=== PATIENT | male | born 1965 | race Two or more races ===

== ENCOUNTER 2017-07-05 09:22 | Inpatient (IN) | payer OTHER ==
[2017-07-05 09:42] VITALS: BMI 26.6
--- NOTE | 2017-07-05 10:38 | HP ---
CIWA Score - CIWA Score Nausea/Vomitin-Mild Nausea/No Vomiting Muscle Tremors: 4-Moderate,w/Arms Extend Anxiety: 4-Mod. Anxious/Guarded Agitation: 1-Slight > Activity Paroxysmal Sweats: 1-Minimal Palms Moist Orientation: 1-Uncertain about Date Tacttile Disturbances: 1-Very Mild Itch/Numbness Auditory Disturbances: 1-Very Mild Visual Disturbances: 1-Very Mild Sensitivity Headache: 2-Mild CIWA-Ar Total Score: 17 Admission ROS BHS - HPI Chief Complaint: I want a chance, I want to get sober Allergies/Adverse Reactions: Allergies Allergy/AdvReac Type Severity Reaction Status Date / Time No Known Allergies Allergy Verified 07/05/17 10:11 History of Present Illness: 51 yo gentleman here for detox from alcohol - no seizure, last time in detox 2013 but relapsed a month ago. Fell and hurt knee but was evaluated at [facility] last night - xray normal - treated and sent for detox. using cane Exam Limitations: Clinical Condition - Ebola screening Have you traveled outside of the country in the last 21 days: No Have you had contact with anyone from an Ebola affected area: No Have you been sick,other than usual withdrawal symptoms: No Do you have a fever: No - Review of Systems Constitutional: Malaise, Night Sweats EENT: reports: Blurred Vision Respiratory: reports: No Symptoms reported Cardiac: reports: No Symptoms Reported GI: reports: Nausea, Abdominal cramping : reports: Frequency Musculoskeletal: reports: No Symptoms Reported Integumentary: reports: Dryness Neuro: reports: Headache, Tremors Endocrine: reports: No Symptoms Reported Hematology: reports: No Symptoms Reported Psychiatric: reports: Judgement Intact, Mood/Affect Appropiate, Orientated x3, Anxious Other Systems: Reviewed and Negative Patient History - Patient Medical History Hx Anemia: No Hx Asthma: No Hx Chronic Obstructive Pulmonary Disease (COPD): No Hx Cancer: No Hx Cardiac Disorders: No Hx Congestive Heart Failure: No Hx Hypertension: No Hx Hypercholesterolemia: No Hx Pacemaker: No HX Cerebrovascular Accident: No Hx Seizures: No Hx Dementia: No Hx Diabetes: Yes (oral meds - non adherent) Hx Gastrointestinal Disorders: No Hx Liver Disease: No Hx Genitourinary Disorders: No Hx Sexually Transmitted Disorders: Yes (Syphillis 2016 - treated with PCN) Hx Renal Disease (ESRD): No Hx Thyroid Disease: No Hx Human Immunodeficiency Virus (HIV): No Hx Hepatitis C: No Hx Depression: Yes (on meds) Hx Suicide Attempt: No (does have thoughts) Hx Bipolar Disorder: Yes (hospitalized three years ago [place]) Hx Schizophrenia: Yes (hears voices - not now) - Patient Surgical History Past Surgical History: Yes Hx Neurologic Surgery: No Hx Cataract Extraction: No Hx Cardiac Surgery: No Hx Lung Surgery: No Hx Breast Surgery: No Hx Breast Biopsy: No Hx Abdominal Surgery: No Hx Appendectomy: No Hx Cholecystectomy: Yes (2002) Hx Genitourinary Surgery: No Hx Section: No Hx Orthopedic Surgery: No Anesthesia Reaction: No - PPD History Previous Implant?: Yes Documented Results: Negative w/proof Implanted On Prior [facility] Admission?: Yes Date: 12/30/13 Results: 0 mm PPD to be Administered?: Yes - Reproductive History Patient is a Female of Child Bearing Age (11 -55 yrs old): No (male) - Smoking Cessation Smoking history: Current every day smoker Have you smoked in the past 12 months: Yes Aproximately how many cigarettes per day: 20 Hx Chewing Tobacco Use: No Initiated information on smoking cessation: Yes 'Breaking Loose' booklet given: 07/05/17 (give on floor) - Substance & Tx. History Hx Alcohol Use: Yes Hx Substance Use: No Substance Use Type: Alcohol Hx Substance Use Treatment: Yes (detox, rehab) - Substances Abused Alcohol Route: Oral Frequency: Daily Amount used: vodka 4 pints Age of first use: 12 Date of Last Use: 07/04/17 Family Disease History - Family Disease History Family History: Unable to Obtain (adopted) Family Disease History: Other: Mother (adopted mother , MVA) Admission Physical Exam [facility] - Vital Signs Vital Signs: Vital Signs - 24 hr 07/05/17 09:40 Temperature 97.2 F L Pulse Rate 106 H Respiratory 20 Rate Blood Pressure 123/81 - Physical General Appearance: Yes: Nourished, Appropriately Dressed, Mild Distress, Anxious HEENTM: Yes: Hearing grossly Normal, Normal ENT Inspection, Normocephalic, Normal Voice Respiratory: Yes: Normal Breath Sounds, No Respiratory Distress Neck: Yes: No masses,lesions,Nodules Breast: Yes: Breast Exam Deferred Cardiology: Yes: Regular Rhythm, Regular Rate Abdominal: Yes: Soft Genitourinary: Yes: Within Normal Limits Back: Yes: Normal Inspection Musculoskeletal: Yes: full range of Motion, Joint swelling, Other (left knee with mild swelling) Extremities: Yes: Normal Inspection, Pedal Edema, Swelling Neurological: Yes: Fully Oriented, Alert, Normal Mood/Affect, Normal Response Integumentary: Yes: Normal Color, Warm Lymphatic: Yes: Within Normal Limits - Addiitonal Findings: IBA=[id number] - Diagnostic (1) Alcohol dependence Current Visit: Yes Status: Chronic Qualifiers: Substance use status: uncomplicated Qualified Code(s): F10.20 - Alcohol dependence, uncomplicated (2) Hx of syphilis Current Visit: Yes Status: Chronic Comment: treated (3) Nicotine dependence Current Visit: Yes Status: Chronic (4) Diabetes mellitus treated with oral medication Current Visit: Yes Status: Chronic Comment: non compliant with meds x 1 month (5) Pedal edema Current Visit: Yes Status: Chronic Comment: states gets edema when he drinks alot (6) Knee injury Current Visit: Yes Status: Acute Qualifiers: Encounter type: subsequent encounter Laterality: left Qualified Code(s): S89.92XD - Unspecified injury of left lower leg, subsequent encounter Comment: treated at [place] ED 07/04/17 - told XRay negative for fracture Cleared for Admission [facility] - Detox or Rehab [facility] Level of Care: Medically Managed Detox Regimen/Protocol: Librium [facility] Breath Alcohol Content Breath Alcohol Content: 0.008 Urine Drug Screen - Results Drug Screen Negative: Yes
[2017-07-05] MEDS ORDERED: chlordiazePOXIDE HCL 25 MG CAPSULE PO PRN (10:44)
[2017-07-05] MEDS ORDERED: P-EPHED 60MG/TRIPROLIDI 2.5MG TABLET PO PRN (10:44)
[2017-07-05] MEDS ORDERED: LOPERAMIDE HCL 2 MG CAPSULE PO PRN (10:44)
[2017-07-05] MEDS ORDERED: MENTHOL/PHENOL 1 EACH UD MM PRN (10:44)
[2017-07-05] MEDS ORDERED: hydrOXYzine PAMOATE 50 MG CAPSULE (FP) PO PRN (10:44)
[2017-07-05] MEDS ORDERED: IBUPROFEN 400 MG TABLET (FP) PO PRN (10:44)
[2017-07-05] MEDS ORDERED: MAG HYDROX/AL HYDROX/SIMETH 30 ML UNIT-DOSE CUP PO PRN (10:44)
[2017-07-05] MEDS ORDERED: MAGNESIUM CITRATE 300 ML BOTTLE PO PRN (10:44)
[2017-07-05] MEDS ORDERED: diphenhydrAMINE HCL 50 MG CAPSULE PO PRN (10:44)
[2017-07-05] MEDS ORDERED: guaiFENesin/D-METHORPHAN HB 10 ML UNIT-DOSE CUPS PO PRN (10:44)
[2017-07-05] MEDS ORDERED: MAGNESIUM HYDROX 2400MG/30ML ORAL SUSPENSION 30 ML CUP PO PRN (10:44)
[2017-07-05] MEDS ORDERED: FUROSEMIDE 20 MG TABLET (FP) PO ONE (11:30)
[2017-07-05] MEDS ORDERED: chlordiazePOXIDE HCL 25 MG CAPSULE PO ONE (11:30)
[2017-07-05] MEDS: NICOTINE 21 MG/24 HOURS TOPICAL PATCH TD SCH (11:48)
[2017-07-05] MEDS: INSULIN SLIDING SCALE (NOVOLOG) 1 VIAL SQ SCH ×3 (11:53→21:30)
[2017-07-05] MEDS ORDERED: INSULIN (NOVOLOG) ASPART 100 UNITS/ML 10ML VIAL ONE ×3 (11:53→21:22)
[2017-07-05] MEDS ORDERED: PNEUMOCOCCAL 23 VACCINE 0.5 ML VIAL IM ONE (12:00)
[2017-07-05 13:00] LABS: URINE APPEARANCE CLEAR; URINE BILIRUBIN NEGATIVE (NEGATIVE); URINE BLOOD NEGATIVE (NEGATIVE); URINE COLOR YELLOW; URINE GLUCOSE (UA) 3+ (NEGATIVE); URINE KETONE 1+ (NEGATIVE); URINE LEUK ESTERASE NEGATIVE (NEGATIVE); URINE NITRITE NEGATIVE (NEGATIVE); URINE PROTEIN NEGATIVE (NEGATIVE); URINE UROBILINOGEN 4.0 E.U/dl mg/dL (0.2-1.0)
[2017-07-05] MEDS: chlordiazePOXIDE HCL 25 MG CAPSULE PO SCH ×2 (17:05→22:00)
[2017-07-05] MEDS: metFORMIN HCL 500 MG TABLET (FP) PO SCH (17:05)
[2017-07-05] MEDS: ACETAMINOPHEN 325 MG TABLET (FP) PO PRN (21:13)
[2017-07-05] MEDS: THIAMINE HCL 100 MG TABLET (FP) PO SCH (22:30)
[2017-07-06] MEDS: chlordiazePOXIDE HCL 25 MG CAPSULE PO SCH ×4 (05:54→22:22)
[2017-07-06] MEDS: INSULIN SLIDING SCALE (NOVOLOG) 1 VIAL SQ SCH ×4 (07:07→21:28)
[2017-07-06] MEDS: metFORMIN HCL 500 MG TABLET (FP) PO SCH ×2 (07:07→16:50)
[2017-07-06] MEDS: PRENATAL VITAMINS W/ FOLIC ACID TABLET (FP) PO SCH (10:36)
[2017-07-06] MEDS: NICOTINE 21 MG/24 HOURS TOPICAL PATCH TD SCH (10:37)
[2017-07-06 10:43] LABS: ALBUMIN 2.7 g/dl (3.4-5.0); ALK PHOS 115 U/L (45-117); ANION GAP 10 (8-16); BILIRUBIN,TOTAL 2.1 mg/dL (0.2-1.0); CALCIUM 8.8 mg/dL (8.5-10.1); CO2 25 mmol/L (21-32); CREATININE 0.5 mg/dL (0.7-1.3); GLUCOSE,RANDOM 142 mg/dL (74-106); SGOT/AST 62 U/L (15-37); SGPT/ALT 35 U/L (12-78); TOT PROT 6.3 g/dl (6.4-8.2)
[2017-07-06 10:51] LABS: MCH 25.9 pg (25.7-33.7); MCHC 31.7 g/dl (32.0-35.9); MEAN CELL VOLUME 81.9 fl (80-96); MEAN PLT VOLUME 8.6 fl (7.5-11.1); PLATELET COUNT 244 K/MM3 (134-434); RDW 14.5 % (11.9-15.9); WHITE BLOOD COUNT 16.3 K/mm3 (4.0-10.0)
[2017-07-06] MEDS ORDERED: INSULIN (NOVOLOG) ASPART 100 UNITS/ML 10ML VIAL ONE ×3 (11:10→21:29)
[2017-07-06 11:39] LABS: HIV 1 & 2 AB NEGATIVE; HIV 1 AGp24 NEGATIVE
[2017-07-06] MEDS ORDERED: PNEUMOC 13-VAL CONJ-DIP CRM/PF 0.5 ML DISP.SYRIN IM ONE (12:00)
--- NOTE | 2017-07-06 13:57 | EKG ---
Test Reason : Blood Pressure : / mmHG Vent. Rate : 110 BPM Atrial Rate : 110 BPM P-R Int : 122 ms QRS Dur : 090 ms QT Int : 382 ms P-R-T Axes : 047 059 029 degrees QTc Int : 516 ms SINUS TACHYCARDIA OTHERWISE NORMAL ECG NO PREVIOUS ECGS AVAILABLE Confirmed by JUAN JOSE NIETO, MITUL ([id number]) on 07/06/2017 1:56:49 PM Referred By: Confirmed By:MITUL INGRAM MD
--- NOTE | 2017-07-06 15:02 | PN ---
S CIWA - CIWA Score Nausea/Vomitin Muscle Tremors: 4-Moderate,w/Arms Extend Anxiety: 4-Mod. Anxious/Guarded Agitation: 4-Moderately Restless Paroxysmal Sweats: 3 Orientation: 0-Oriented Tacttile Disturbances: 1-Very Mild Itch/Numbness Auditory Disturbances: 0-None Visual Disturbances: 0-None Headache: 2-Mild CIWA-Ar Total Score: 21 BHS Progress Note (SOAP) Subjective: Tremor, chills, sweating, anxious, interrupted sleep, nausea Objective: 07/06/17 14:58 Last Vital Signs Temp Pulse Resp BP Pulse Ox 97.1 F L 115 H 20 121/82 07/06/17 14:03 07/06/17 14:03 07/06/17 14:03 07/06/17 14:03 Pulse 115 (noted) Laboratory Tests 07/05/17 07/05/17 07/05/17 11:40 11:52 17:01 WBC RBC Hgb Hct MCV MCH MCHC RDW Plt Count MPV Sodium Potassium Chloride Carbon Dioxide Anion Gap BUN Creatinine Creat Clearance w eGFR POC Glucometer 281 209 Random Glucose Calcium Total Bilirubin AST ALT Alkaline Phosphatase Total Protein Albumin Urine Color Yellow Urine Appearance Clear Urine pH 7.0 D Ur Specific [place] 1.015 Urine Protein Negative Urine Glucose (UA) 3+ H Urine Ketones 1+ H Urine Blood Negative Urine Nitrite Negative Urine Bilirubin Negative Urine Urobilinogen 4.0 e.u/dl Ur Leukocyte Esterase Negative RPR Titer T.pallidum Ab (A) HIV 1&2 Antibody Screen HIV P24 Antigen 07/06/17 07/06/17 07/06/17 05:56 08:00 08:00 WBC 16.3 H D RBC 4.71 Hgb 12.2 D Hct 38.6 MCV 81.9 MCH 25.9 MCHC 31.7 L RDW 14.5 Plt Count 244 MPV 8.6 Sodium Potassium Chloride Carbon Dioxide Anion Gap BUN Creatinine Creat Clearance w eGFR POC Glucometer 149 Random Glucose Calcium Total Bilirubin AST ALT Alkaline Phosphatase Total Protein Albumin Urine Color Urine Appearance Urine pH Ur Specific [place] Urine Protein Urine Glucose (UA) Urine Ketones Urine Blood Urine Nitrite Urine Bilirubin Urine Urobilinogen Ur Leukocyte Esterase RPR Titer T.pallidum Ab (A) HIV 1&2 Antibody Screen Negative HIV P24 Antigen Negative 07/06/17 07/06/1717 08:00 08:00 11:06 WBC RBC Hgb Hct MCV MCH MCHC RDW Plt Count MPV Sodium 139 Potassium 3.5 Chloride 104 Carbon Dioxide 25 Anion Gap 10 BUN 4 L D Creatinine 0.5 L D Creat Clearance w eGFR > 60 POC Glucometer 256 Random Glucose 142 H D Calcium 8.8 Total Bilirubin 2.1 H D AST 62 H D ALT 35 D Alkaline Phosphatase 115 D Total Protein 6.3 L Albumin 2.7 L D Urine Color Urine Appearance Urine pH Ur Specific [place] Urine Protein Urine Glucose (UA) Urine Ketones Urine Blood Urine Nitrite Urine Bilirubin Urine Urobilinogen Ur Leukocyte Esterase RPR Titer Reactive 1:1 H T.pallidum Ab (MHA) Previously reactive HIV 1&2 Antibody Screen HIV P24 Antigen Labs noted: wbc 16.3 Assessment: 07/06/17 14:59 Withdrawal symptoms Noted with tachycardia and leukocytosis Plan: Continue detox Tachycardia: encouraged to drink lots of water (water pitcher ordered) Leukocytosis: repeat CBC, chest xray in AM
[2017-07-06] MEDS: THIAMINE HCL 100 MG TABLET (FP) PO SCH (22:22)
[2017-07-06] MEDS: ACETAMINOPHEN 325 MG TABLET (FP) PO PRN (22:22)
[2017-07-07] MEDS: chlordiazePOXIDE HCL 25 MG CAPSULE PO SCH ×2 (05:33→10:47)
[2017-07-07] MEDS: metFORMIN HCL 500 MG TABLET (FP) PO SCH ×2 (06:31→16:59)
[2017-07-07] MEDS ORDERED: INSULIN (NOVOLOG) ASPART 100 UNITS/ML 10ML VIAL ONE ×4 (07:52→22:00)
[2017-07-07] MEDS: INSULIN SLIDING SCALE (NOVOLOG) 1 VIAL SQ SCH ×4 (07:52→22:12)
[2017-07-07 10:38] LABS: BASOPHIL 0.2 % (0-2.0); EOSINOPHIL 1.7 % (0-4.5); MCH 26.6 pg (25.7-33.7); MCHC 32.5 g/dl (32.0-35.9); MEAN CELL VOLUME 81.8 fl (80-96); MEAN PLT VOLUME 8.8 fl (7.5-11.1); NEUTROPHILS 71.9 % (42.8-82.8); PLATELET COUNT 220 K/MM3 (134-434); RDW 14.7 % (11.9-15.9); WHITE BLOOD COUNT 13.6 K/mm3 (4.0-10.0)
[2017-07-07] MEDS: NICOTINE 21 MG/24 HOURS TOPICAL PATCH TD SCH (10:47)
[2017-07-07] MEDS: PRENATAL VITAMINS W/ FOLIC ACID TABLET (FP) PO SCH (10:47)
--- NOTE | 2017-07-07 11:46 | PN ---
S CIWA - CIWA Score Nausea/Vomitin Muscle Tremors: 4-Moderate,w/Arms Extend Anxiety: 3 Agitation: 2 Paroxysmal Sweats: 2 Orientation: 2-Disoriented Date<2 days Tacttile Disturbances: 0-None Auditory Disturbances: 0-None Visual Disturbances: 0-None Headache: 4-Moderately Severe CIWA-Ar Total Score: 19 S Progress Note (SOAP) Subjective: Tremors, Stomach Cramping, Diarrhea, Body Aches, H/A, Interrupted Sleep. Objective: PT. A & O X 2 (DISORIENTED ABOUT DAY / DATE). NO ACUTE DISTRESS. 07/07/17 11:44 Vital Signs Temperature 97.4 F L 07/07/17 09:46 Pulse Rate 81 07/07/17 09:46 Respiratory Rate 18 07/07/17 09:46 Blood Pressure 116/75 07/07/17 09:46 O2 Sat by Pulse Oximetry (%) Laboratory Tests 07/05/17 07/05/17 07/05/17 10:36 11:40 11:52 WBC RBC Hgb Hct MCV MCH MCHC RDW Plt Count MPV Neutrophils % Lymphocytes % Monocytes % Eosinophils % Basophils % Sodium Potassium Chloride Carbon Dioxide Anion Gap BUN Creatinine Creat Clearance w eGFR POC Glucometer 315 281 Random Glucose Calcium Total Bilirubin AST ALT Alkaline Phosphatase Total Protein Albumin Urine Color Yellow Urine Appearance Clear Urine pH 7.0 D Ur Specific [place] 1.015 Urine Protein Negative Urine Glucose (UA) 3+ H Urine Ketones 1+ H Urine Blood Negative Urine Nitrite Negative Urine Bilirubin Negative Urine Urobilinogen 4.0 e.u/dl Ur Leukocyte Esterase Negative RPR Titer T.pallidum Ab (A) HIV 1&2 Antibody Screen HIV P24 Antigen 07/05/17 07/05/17 07/06/17 17:01 21:10 05:56 WBC RBC Hgb Hct MCV MCH MCHC RDW Plt Count MPV Neutrophils % Lymphocytes % Monocytes % Eosinophils % Basophils % Sodium Potassium Chloride Carbon Dioxide Anion Gap BUN Creatinine Creat Clearance w eGFR POC Glucometer 209 124 149 Random Glucose Calcium Total Bilirubin AST ALT Alkaline Phosphatase Total Protein Albumin Urine Color Urine Appearance Urine pH Ur Specific [place] Urine Protein Urine Glucose (UA) Urine Ketones Urine Blood Urine Nitrite Urine Bilirubin Urine Urobilinogen Ur Leukocyte Esterase RPR Titer T.pallidum Ab (A) HIV 1&2 Antibody Screen HIV P24 Antigen 07/06/17 07/06/17 07/06/17 08:00 08:00 08:00 WBC 16.3 H D RBC 4.71 Hgb 12.2 D Hct 38.6 MCV 81.9 MCH 25.9 MCHC 31.7 L RDW 14.5 Plt Count 244 MPV 8.6 Neutrophils % Lymphocytes % Monocytes % Eosinophils % Basophils % Sodium 139 Potassium 3.5 Chloride 104 Carbon Dioxide 25 Anion Gap 10 BUN 4 L D Creatinine 0.5 L D Creat Clearance w eGFR > 60 POC Glucometer Random Glucose 142 H D Calcium 8.8 Total Bilirubin 2.1 H D AST 62 H D ALT 35 D Alkaline Phosphatase 115 D Total Protein 6.3 L Albumin 2.7 L D Urine Color Urine Appearance Urine pH Ur Specific [place] Urine Protein Urine Glucose (UA) Urine Ketones Urine Blood Urine Nitrite Urine Bilirubin Urine Urobilinogen Ur Leukocyte Esterase RPR Titer T.pallidum Ab (A) HIV 1&2 Antibody Screen Negative HIV P24 Antigen Negative 07/06/17 07/06/17 07/06/17 08:00 11:06 16:16 WBC RBC Hgb Hct MCV MCH MCHC RDW Plt Count MPV Neutrophils % Lymphocytes % Monocytes % Eosinophils % Basophils % Sodium Potassium Chloride Carbon Dioxide Anion Gap BUN Creatinine Creat Clearance w eGFR POC Glucometer 256 246 Random Glucose Calcium Total Bilirubin AST ALT Alkaline Phosphatase Total Protein Albumin Urine Color Urine Appearance Urine pH Ur Specific [place] Urine Protein Urine Glucose (UA) Urine Ketones Urine Blood Urine Nitrite Urine Bilirubin Urine Urobilinogen Ur Leukocyte Esterase RPR Titer Reactive 1:1 H T.pallidum Ab (A) Previously reactive HIV 1&2 Antibody Screen HIV P24 Antigen 07/06/17 07/07/17 07/07/17 21:25 05:33 07:00 WBC 13.6 H RBC 4.23 Hgb 11.3 L Hct 34.6 L MCV 81.8 MCH 26.6 MCHC 32.5 RDW 14.7 Plt Count 220 MPV 8.8 Neutrophils % 71.9 Lymphocytes % 20.4 Monocytes % 5.8 Eosinophils % 1.7 Basophils % 0.2 Sodium Potassium Chloride Carbon Dioxide Anion Gap BUN Creatinine Creat Clearance w eGFR POC Glucometer 234 139 Random Glucose Calcium Total Bilirubin AST ALT Alkaline Phosphatase Total Protein Albumin Urine Color Urine Appearance Urine pH Ur Specific [place] Urine Protein Urine Glucose (UA) Urine Ketones Urine Blood Urine Nitrite Urine Bilirubin Urine Urobilinogen Ur Leukocyte Esterase RPR Titer T.pallidum Ab (MHA) HIV 1&2 Antibody Screen HIV P24 Antigen LABS NOTED. RESULTS OF REPEAT CBC NOTED. RESULTS OF CXR ORDERED FOR TODAY PENDING. PATIENT COMPLETED TREATMENT FOR SYPHILIS IN 2015. 07/07/17 11:48 07/07/17 11:51 Assessment: 07/07/17 11:44 WITHDRAWAL SYMPTOMS. Plan: CONTINUE DETOX. FEOSOL, 325 MG PO BIDWM.
--- NOTE | 2017-07-07 12:30 | CONSULT ---
[facility] Psychiatric Consult - Data Date of interview: 07/07/17 Admission source: [facility] Identifying data: Readmission to [facility] for this 51 y/o male seeking detox treatment on for alcohol dependence.Patient is , a father of two,domiciled,unemployed and supported on Public Assistance. Substance Abuse History: Discussed in this session with the patient.Mr Johnson confirms this pattern of alcohol abuse. - Smoking Cessation. Smoking history: Current every day smoker. Have you smoked in the past 12 months: Yes. Aproximately how many cigarettes per day: 20. Hx Chewing Tobacco Use: No. Initiated information on smoking cessation: Yes. 'Breaking Loose' booklet given : 07/05/17 (give on floor). - Substance & Tx. History. Hx Alcohol Use: Yes. Hx Substance Use: No. Substance Use Type: Alcohol. Hx Substance Use Treatment : Yes (detox, rehab). - Substances Abused. Alcohol. Route: Oral. Frequency: Daily. Amount used: vodka 4 pints. Age of first use: 12. Date of Last Use: 07/04/17 Medical History: Diabetes mellitus and past history of treatment for syphillis ( 2016).Walks with a cane (hurt his left knee in a recent fall at home). Psychiatric History: Patient admits to a history of two psychiatric hospitalizations (both at [facility] [place]).Diagnosed with MDD and Anxiety Disorder.Maintained on zoloft and trazodone (doses not recalled).Mr Johnson reports that he last saw his OPD psychiatrist " more than seven months ago ".Survey of pharmacy claims shows that the most recent scripts for sertraline/trazodone were issued by Dr Diana Pedroza on 02/27/17.No recollection of treatment site or name of facility.Patient denies history of suicide attempts. Physical/Sexual Abuse/Trauma History: Patient denies. Additional Comment: Drug Screen is negative. Mental Status Exam - Mental Status Exam Alert and Oriented to: Time, Place, Person Cognitive Function: Good Patient Appearance: Well Groomed Mood: Nervous, Withdrawn Affect: Mood Congruent Patient Behavior: Fatigued, Appropriate, Cooperative Speech Pattern: Clear Voice Loudness: Normal Thought Process: Goal Oriented Thought Disorder: Not Present Hallucinations: Denies Suicidal Ideation: Denies Homicidal Ideation: Denies Insight/Judgement: Poor Sleep: Poorly, Difficulty falling asleep Appetite: Good Muscle strength/Tone: Normal Gait/Station: Other (walks with a cane) Psychiatric Findings - Problem List ([place] 1, 2,3) (1) Alcohol dependence Current Visit: Yes Status: Acute Qualifiers: Substance use status: uncomplicated Qualified Code(s): F10.20 - Alcohol dependence, uncomplicated (2) Nicotine dependence Current Visit: Yes Status: Acute (3) Substance induced mood disorder Current Visit: Yes Status: Acute (4) Depressive disorder Current Visit: Yes Status: Chronic Comment: History.Non compliant with psychiatric aftercare. (5) Knee injury Current Visit: Yes Status: Acute Qualifiers: Encounter type: subsequent encounter Laterality: left Qualified Code(s): S89.92XD - Unspecified injury of left lower leg, subsequent encounter Comment: treated at [facility] 07/04/17 - told XRay negative for fracture (6) Diabetes mellitus treated with oral medication Current Visit: Yes Status: Chronic Comment: non compliant with meds x 1 month (7) Hx of syphilis Current Visit: Yes Status: Chronic Comment: treated (8) Insomnia Current Visit: Yes Status: Acute - Initial Treatment Plan Initial Treatment Plan: Psychoeducation.Detoxification.Medications : zoloft 50 mg po daily + trazodone 100 mg po hs.Side effects/benefits of both drugas are discussed with patient.He is made aware of risk for sexual impotence/suicidal ideation (sertraline) and priapism (trazdone).Advised to stop trazodone / seek immediate medical assistance if erectile abnormalities (prolonged/painful erection).Consent (verbal) given by patient for adherence to this careplan.Obsevation.
[2017-07-07] MEDS: FERROUS SO4 325 MG TABLET (FP) PO SCH (17:33)
[2017-07-07] MEDS: chlordiazePOXIDE 5 MG CAPSULE PO SCH ×2 (17:33→22:12)
[2017-07-07] MEDS: ACETAMINOPHEN 325 MG TABLET (FP) PO PRN (17:35)
[2017-07-07] MEDS: traZODone HCL 100 MG TABLET (FP) PO SCH (22:12)
[2017-07-07] MEDS: THIAMINE HCL 100 MG TABLET (FP) PO SCH (22:12)
[2017-07-08] MEDS: chlordiazePOXIDE 5 MG CAPSULE PO SCH ×2 (05:58→10:40)
[2017-07-08] MEDS: INSULIN SLIDING SCALE (NOVOLOG) 1 VIAL SQ SCH ×4 (07:02→22:07)
[2017-07-08] MEDS: metFORMIN HCL 500 MG TABLET (FP) PO SCH ×2 (07:03→16:54)
[2017-07-08] MEDS: FERROUS SO4 325 MG TABLET (FP) PO SCH ×2 (07:03→16:54)
[2017-07-08] MEDS ORDERED: INSULIN (NOVOLOG) ASPART 100 UNITS/ML 10ML VIAL ONE ×4 (07:03→22:04)
[2017-07-08] MEDS: PRENATAL VITAMINS W/ FOLIC ACID TABLET (FP) PO SCH (10:40)
[2017-07-08] MEDS: SERTRALINE HCL 50 MG TABLET (FP) PO SCH (10:40)
[2017-07-08] MEDS: NICOTINE 21 MG/24 HOURS TOPICAL PATCH TD SCH (10:40)
--- NOTE | 2017-07-08 11:47 | PN ---
S Progress Note (SOAP) Subjective: ANXIETY,IRRITABILITY,FATIGUE,"NOT SLEEPING WELL, I TAKE TRAZODONE'. Objective: 07/08/17 11:46 Vital Signs Temperature 97.8 F 07/08/17 09:51 Pulse Rate 107 H 07/08/17 09:51 Respiratory Rate 20 07/08/17 09:51 Blood Pressure 124/82 07/08/17 09:51 O2 Sat by Pulse Oximetry (%) Laboratory Last Values WBC 13.6 K/mm3 (4.0-10.0) H 07/07/17 07:00 RBC 4.23 M/mm3 (4.00-5.60) 07/07/17 07:00 Hgb 11.3 GM/dL (11.7-16.9) L 07/07/17 07:00 Hct 34.6 % (35.4-49) L 07/07/17 07:00 MCV 81.8 fl (80-96) 07/07/17 07:00 MCH 26.6 pg (25.7-33.7) 07/07/17 07:00 MCHC 32.5 g/dl (32.0-35.9) 07/07/17 07:00 RDW 14.7 % (11.9-15.9) 07/07/17 07:00 Plt Count 220 K/MM3 (134-434) 07/07/17 07:00 MPV 8.8 fl (7.5-11.1) 07/07/17 07:00 Neutrophils % 71.9 % (42.8-82.8) 07/07/17 07:00 Lymphocytes % 20.4 % (8-40) 07/07/17 07:00 Monocytes % 5.8 % (3.8-10.2) 07/07/17 07:00 Eosinophils % 1.7 % (0-4.5) 07/07/17 07:00 Basophils % 0.2 % (0-2.0) 07/07/17 07:00 Sodium 139 mmol/L (136-145) 07/06/17 08:00 Potassium 3.5 mmol/L (3.5-5.1) 07/06/17 08:00 Chloride 104 mmol/L (98-107) 07/06/17 08:00 Carbon Dioxide 25 mmol/L (21-32) 07/06/17 08:00 Anion Gap 10 (8-16) 07/06/17 08:00 BUN 4 mg/dL (7-18) L D 07/06/17 08:00 Creatinine 0.5 mg/dL (0.7-1.3) L D 07/06/17 08:00 Creat Clearance w eGFR > 60 (>60) 07/06/17 08:00 POC Glucometer 158 UNITS (()) 07/08/17 05:57 Random Glucose 142 mg/dL (74-106) H D 07/06/17 08:00 Calcium 8.8 mg/dL (8.5-10.1) 07/06/17 08:00 Total Bilirubin 2.1 mg/dL (0.2-1.0) H D 07/06/17 08:00 AST 62 U/L (15-37) H D 07/06/17 08:00 ALT 35 U/L (12-78) D 07/06/17 08:00 Alkaline Phosphatase 115 U/L (45-117) D 07/06/17 08:00 Total Protein 6.3 g/dl (6.4-8.2) L 07/06/17 08:00 Albumin 2.7 g/dl (3.4-5.0) L D 07/06/17 08:00 Urine Color Yellow 07/05/17 11:40 Urine Appearance Clear 07/05/17 11:40 Urine pH 7.0 (5.0-8.0) D 07/05/17 11:40 Ur Specific [place] 1.015 (1.005-1.025) 07/05/17 11:40 Urine Protein Negative (NEGATIVE) 07/05/17 11:40 Urine Glucose (UA) 3+ (NEGATIVE) H 07/05/17 11:40 Urine Ketones 1+ (NEGATIVE) H 07/05/17 11:40 Urine Blood Negative (NEGATIVE) 07/05/17 11:40 Urine Nitrite Negative (NEGATIVE) 07/05/17 11:40 Urine Bilirubin Negative (NEGATIVE) 07/05/17 11:40 Urine Urobilinogen 4.0 e.u/dl mg/dL (0.2-1.0) 07/05/17 11:40 Ur Leukocyte Esterase Negative (NEGATIVE) 07/05/17 11:40 RPR Titer Reactive 1:1 (NONREACTIVE) H 07/06/17 08:00 T.pallidum Ab (MHA) Previously reactive (NONREACTIVE) 07/06/17 08:00 HIV 1&2 Antibody Screen Negative 07/06/17 08:00 HIV P24 Antigen Negative 07/06/17 08:00 Assessment: 07/08/17 11:46 WITHDRAWAL SX Plan: CONTINUE DETOX
[2017-07-08] MEDS: chlordiazePOXIDE HCL 10 MG CAPSULE PO SCH ×2 (16:54→22:07)
[2017-07-08] MEDS: THIAMINE HCL 100 MG TABLET (FP) PO SCH (22:07)
[2017-07-08] MEDS: traZODone HCL 100 MG TABLET (FP) PO SCH (22:07)
[2017-07-09] MEDS: metFORMIN HCL 500 MG TABLET (FP) PO SCH (06:09)
[2017-07-09] MEDS: chlordiazePOXIDE HCL 10 MG CAPSULE PO SCH ×2 (06:09→10:45)
[2017-07-09 06:30] VITALS: PULSE 112
[2017-07-09] MEDS: FERROUS SO4 325 MG TABLET (FP) PO SCH (07:32)
[2017-07-09] MEDS ORDERED: INSULIN (NOVOLOG) ASPART 100 UNITS/ML 10ML VIAL ONE (07:49)
[2017-07-09] MEDS: INSULIN SLIDING SCALE (NOVOLOG) 1 VIAL SQ SCH (07:53)
[2017-07-09 09:52] VITALS: BP 116/80; TEMP 96.4
[2017-07-09] MEDS: SERTRALINE HCL 50 MG TABLET (FP) PO SCH (10:45)
[2017-07-09] MEDS: NICOTINE 21 MG/24 HOURS TOPICAL PATCH TD SCH (10:45)
[2017-07-09] MEDS: PRENATAL VITAMINS W/ FOLIC ACID TABLET (FP) PO SCH (10:45)
--- NOTE | 2017-07-09 11:38 | DS ---
[facility] Detox Discharge Summary Admission Date: 07/05/17 Discharge Date: 07/09/17 - History Present History: Alcohol Dependence Additional Comments: DETOX COMPLETED. ALERT O X 3. NAD. PT INSTRUCTED TO FOLLOW UP WITH PMD AT [facility] FOR MANAGEMENT OF MEDICAL CONDITIONS. Pertinent Past History: TYPE 2 DM USE OF CANE FOR AMBULATION S/P KNEE INJURY PEDAL EDEMA - Physical Exam Results Vital Signs: Vital Signs Temperature 96.4 F L 07/09/17 09:52 Pulse Rate 112 H 07/09/17 09:52 Respiratory Rate 18 07/09/17 09:52 Blood Pressure 116/80 07/09/17 09:52 O2 Sat by Pulse Oximetry (%) Pertinent Admission Physical Exam Findings: WITHDRAWAL SX Laboratory Last Values WBC 13.6 K/mm3 (4.0-10.0) H 07/07/17 07:00 RBC 4.23 M/mm3 (4.00-5.60) 07/07/17 07:00 Hgb 11.3 GM/dL (11.7-16.9) L 07/07/17 07:00 Hct 34.6 % (35.4-49) L 07/07/17 07:00 MCV 81.8 fl (80-96) 07/07/17 07:00 MCH 26.6 pg (25.7-33.7) 07/07/17 07:00 MCHC 32.5 g/dl (32.0-35.9) 07/07/17 07:00 RDW 14.7 % (11.9-15.9) 07/07/17 07:00 Plt Count 220 K/MM3 (134-434) 07/07/17 07:00 MPV 8.8 fl (7.5-11.1) 07/07/17 07:00 Neutrophils % 71.9 % (42.8-82.8) 07/07/17 07:00 Lymphocytes % 20.4 % (8-40) 07/07/17 07:00 Monocytes % 5.8 % (3.8-10.2) 07/07/17 07:00 Eosinophils % 1.7 % (0-4.5) 07/07/17 07:00 Basophils % 0.2 % (0-2.0) 07/07/17 07:00 Sodium 139 mmol/L (136-145) 07/06/17 08:00 Potassium 3.5 mmol/L (3.5-5.1) 07/06/17 08:00 Chloride 104 mmol/L (98-107) 07/06/17 08:00 Carbon Dioxide 25 mmol/L (21-32) 07/06/17 08:00 Anion Gap 10 (8-16) 07/06/17 08:00 BUN 4 mg/dL (7-18) L D 07/06/17 08:00 Creatinine 0.5 mg/dL (0.7-1.3) L D 07/06/17 08:00 Creat Clearance w eGFR > 60 (>60) 07/06/17 08:00 POC Glucometer 132 UNITS (()) 07/09/17 06:09 Random Glucose 142 mg/dL (74-106) H D 07/06/17 08:00 Calcium 8.8 mg/dL (8.5-10.1) 07/06/17 08:00 Total Bilirubin 2.1 mg/dL (0.2-1.0) H D 07/06/17 08:00 AST 62 U/L (15-37) H D 07/06/17 08:00 ALT 35 U/L (12-78) D 07/06/17 08:00 Alkaline Phosphatase 115 U/L (45-117) D 07/06/17 08:00 Total Protein 6.3 g/dl (6.4-8.2) L 07/06/17 08:00 Albumin 2.7 g/dl (3.4-5.0) L D 07/06/17 08:00 Urine Color Yellow 07/05/17 11:40 Urine Appearance Clear 07/05/17 11:40 Urine pH 7.0 (5.0-8.0) D 07/05/17 11:40 Ur Specific [place] 1.015 (1.005-1.025) 07/05/17 11:40 Urine Protein Negative (NEGATIVE) 07/05/17 11:40 Urine Glucose (UA) 3+ (NEGATIVE) H 07/05/17 11:40 Urine Ketones 1+ (NEGATIVE) H 07/05/17 11:40 Urine Blood Negative (NEGATIVE) 07/05/17 11:40 Urine Nitrite Negative (NEGATIVE) 07/05/17 11:40 Urine Bilirubin Negative (NEGATIVE) 07/05/17 11:40 Urine Urobilinogen 4.0 e.u/dl mg/dL (0.2-1.0) 07/05/17 11:40 Ur Leukocyte Esterase Negative (NEGATIVE) 07/05/17 11:40 RPR Titer Reactive 1:1 (NONREACTIVE) H 07/06/17 08:00 T.pallidum Ab ([facility]) Previously reactive (NONREACTIVE) 07/06/17 08:00 HIV 1&2 Antibody Screen Negative 07/06/17 08:00 HIV P24 Antigen Negative 07/06/17 08:00 - Treatment Hospital Course: Detox Protocol Followed, Detoxed Safely, Responded well, Discharged Condition Good, Rehab Referral Accepted Patient has Accepted a Rehab Referral to: [facility] - Medication Discharge Medications: Ambulatory Orders Trazodone HCl [Desyrel -] 150 mg PO HS #30 tablet 11/12/14 Metformin HCl [Glucophage -] 500 mg PO BID 07/05/17 Quetiapine Fumarate [Seroquel] 150 mg PO BID 07/05/17 Sertraline HCl [Zoloft -] 50 mg PO DAILY #30 tablet 07/07/17 Trazodone HCl 100 mg PO HS #30 tablet 07/07/17 - Diagnosis (1) Nicotine dependence Status: Acute Qualifiers: Nicotine product type: cigarettes Substance use status: in withdrawal Qualified Code(s): F17.213 - Nicotine dependence, cigarettes, with withdrawal (2) Diabetes mellitus treated with oral medication Status: Chronic (3) Alcohol dependence with uncomplicated withdrawal Status: Acute (4) Knee injury Status: Acute Qualifiers: Encounter type: subsequent encounter Laterality: left Qualified Code(s): S89.92XD - Unspecified injury of left lower leg, subsequent encounter (5) Pedal edema Status: Chronic (6) Use of cane as ambulatory aid Status: Chronic - AMA Did Patient Leave Against Medical Advice: No
== END 2017-07-09 10:51 | disposition home or self-care (01) | DRG 775 ==
LOC: YASAS 09:22 → Y3N 10:49
PROVIDERS: ADMIT Internal Medicine; ATTEND Internal Medicine
PROC: HZ2ZZZZ Detoxification Services for Substance Abuse Treatment (ICD-10-PCS; principal; 2017-07-05)
DX: F10.230 Alcohol dependence with withdrawal, uncomplicated (principal); F17.210 Nicotine dependence, cigarettes, uncomplicated; E11.9 Type 2 diabetes mellitus without complications; G47.00 Insomnia, unspecified; D72.829 Elevated white blood cell count, unspecified; R00.0 Tachycardia, unspecified; R26.2 Difficulty in walking, not elsewhere classified; Z99.89 Dependence on other enabling machines and devices; Z79.84 Long term (current) use of oral hypoglycemic drugs; Z87.438 Personal history of other diseases of male genital organs; S89.92XD Unspecified injury of left lower leg, subsequent encounter; W19.XXXD Unspecified fall, subsequent encounter
CPT/HCPCS: 36415; 71020-TC; 80053; 81003; 85025; 85027; 86593; 86780; 87389; 90732; 93005; 93010; G0009

== ENCOUNTER 2017-09-12 13:20 | Inpatient (IN) | payer OTHER ==
[2017-09-12 14:12] VITALS: BMI 30.7
--- NOTE | 2017-09-12 18:22 | HP ---
CIWA Score - CIWA Score Nausea/Vomitin-Mild Nausea/No Vomiting Muscle Tremors: 4-Moderate,w/Arms Extend Anxiety: 4-Mod. Anxious/Guarded Agitation: 3 Paroxysmal Sweats: 1-Minimal Palms Moist Orientation: 0-Oriented Tacttile Disturbances: 0-None Auditory Disturbances: 0-None Visual Disturbances: 0-None Headache: 1-Very Mild CIWA-Ar Total Score: 14 Admission ROS BHS - HPI Chief Complaint: withdrawal sx Allergies/Adverse Reactions: Allergies Allergy/AdvReac Type Severity Reaction Status Date / Time No Known Allergies Allergy Verified 09/12/17 17:41 History of Present Illness: 52 years old male with long history of alcohol nicotine dependence has diabetes ii and schizophrenia is admitted to detox Exam Limitations: No Limitations - Ebola screening Have you traveled outside of the country in the last 21 days: No Have you had contact with anyone from an Ebola affected area: No Have you been sick,other than usual withdrawal symptoms: No Do you have a fever: No - Review of Systems Constitutional: Changes in sleep, Weight Stable EENT: reports: Blurred Vision (needs eye glasses), Dental Problems (multiple teeth missing) Respiratory: reports: SOB with Exertion Cardiac: reports: No Symptoms Reported GI: reports: Nausea, Poor Fluid Intake, Abdominal cramping : reports: No Symptoms Reported Musculoskeletal: reports: No Symptoms Reported Integumentary: reports: No Symptoms Reported Neuro: reports: Seizure (06/2017 last episode), Tremors Endocrine: reports: No Symptoms Reported Hematology: reports: No Symptoms Reported Psychiatric: reports: Judgement Intact, Orientated x3, Anxious, Depressed Other Systems: Reviewed and Negative Patient History - Patient Medical History Hx Anemia: No Hx Asthma: No Hx Chronic Obstructive Pulmonary Disease (COPD): No Hx Cancer: No Hx Cardiac Disorders: No Hx Congestive Heart Failure: No Hx Hypertension: No Hx Hypercholesterolemia: No Hx Pacemaker: No HX Cerebrovascular Accident: No Hx Seizures: No Hx Dementia: No Hx Diabetes: Yes (oral meds - non adherent) Hx Gastrointestinal Disorders: No Hx Liver Disease: No Hx Genitourinary Disorders: No Hx Sexually Transmitted Disorders: Yes (Syphillis 2016 - treated with PCN) Hx Renal Disease (ESRD): No Hx Thyroid Disease: No Hx Human Immunodeficiency Virus (HIV): No Hx Hepatitis C: No Hx Depression: No (on meds) Hx Suicide Attempt: Yes (does have thoughts 2015 [address] into traffic) Hx Bipolar Disorder: No (hospitalized three years ago [place]) Hx Schizophrenia: Yes (hears voices - not now) - Patient Surgical History Past Surgical History: Yes Hx Neurologic Surgery: No Hx Cataract Extraction: No Hx Cardiac Surgery: No Hx Lung Surgery: No Hx Breast Surgery: No Hx Breast Biopsy: No Hx Abdominal Surgery: No Hx Appendectomy: No Hx Cholecystectomy: Yes (2002) Hx Genitourinary Surgery: No Hx Orthopedic Surgery: No Anesthesia Reaction: No - PPD History Previous Implant?: Yes Documented Results: Negative w/proof Implanted On Prior [facility] Admission?: Yes Date: 07/07/17 Results: 0 mm PPD to be Administered?: No - Smoking Cessation Smoking history: Current every day smoker Have you smoked in the past 12 months: Yes Aproximately how many cigarettes per day: 20 Cigars Per Day: 0 Hx Chewing Tobacco Use: No Initiated information on smoking cessation: Yes 'Breaking Loose' booklet given: 09/12/17 - Substance & Tx. History Hx Alcohol Use: Yes Hx Substance Use: No Substance Use Type: Alcohol Hx Substance Use Treatment: Yes (07/05-07/09/17 [facility]) - Substances Abused Alcohol Route: Oral Frequency: Daily Amount used: liquor- 1 pint, beer- 1 six pack 40oz Age of first use: 12 Date of Last Use: 09/11/17 Family Disease History - Family Disease History Family Disease History: Heart Disease: Father (), Other: Father, Mother (adopted mother , MVA) Other Family History: adopted child Admission Physical Exam [facility] - Vital Signs Vital Signs: Vital Signs - 24 hr 09/12/17 14:11 Temperature 98.6 F Pulse Rate 82 Respiratory 18 Rate Blood Pressure 120/70 - Physical General Appearance: Yes: Nourished, Appropriately Dressed, Mild Distress, Tremorous, Irritable, Sweating, Anxious HEENTM: Yes: Hearing grossly Normal, Normal ENT Inspection, Normocephalic, Normal Voice Respiratory: Yes: Chest Non-Tender, Lungs Clear, Normal Breath Sounds, No Respiratory Distress, No Accessory Muscle Use Neck: Yes: Supple, Trachea in good position Breast: Yes: Breasts Symetrical Cardiology: Yes: Regular Rhythm, Regular Rate, S1, S2 Abdominal: Yes: Normal Bowel Sounds, Non Tender, Soft Genitourinary: Yes: Within Normal Limits Back: Yes: Normal Inspection Musculoskeletal: Yes: full range of Motion, Gait Steady Extremities: Yes: Normal Inspection, Normal Range of Motion, Non-Tender, Tremors Neurological: Yes: Fully Oriented, Alert, Motor Strength 5/5, Normal Response, Depressed Affect Integumentary: Yes: Warm Lymphatic: Yes: Within Normal Limits - Diagnostic (1) Alcohol dependence with uncomplicated withdrawal Current Visit: Yes Status: Acute (2) Nicotine dependence Current Visit: Yes Status: Acute Qualifiers: Nicotine product type: cigarettes Substance use status: in withdrawal Qualified Code(s): F17.213 - Nicotine dependence, cigarettes, with withdrawal; F17.213 - Nicotine dependence, cigarettes, with withdrawal (3) Hx of syphilis Current Visit: Yes Status: Resolved Comment: treated (4) Diabetes mellitus type II, non insulin dependent Current Visit: Yes Status: Chronic Cleared for Admission [facility] - Detox or Rehab [facility] Level of Care: Medically Managed Detox Regimen/Protocol: Librium [facility] Breath Alcohol Content Breath Alcohol Content: 0 Urine Drug Screen - Results Drug Screen Negative: Yes
[2017-09-12] MEDS ORDERED: guaiFENesin/D-METHORPHAN HB 10 ML UNIT-DOSE CUPS PO PRN (18:26)
[2017-09-12] MEDS ORDERED: MENTHOL/PHENOL 1 EACH UD MM PRN (18:26)
[2017-09-12] MEDS ORDERED: diphenhydrAMINE HCL 50 MG CAPSULE PO PRN (18:26)
[2017-09-12] MEDS ORDERED: NICOTINE POLACRILEX 4 MG GUM BC PRN (18:26)
[2017-09-12] MEDS ORDERED: LOPERAMIDE HCL 2 MG CAPSULE PO PRN (18:26)
[2017-09-12] MEDS ORDERED: MAGNESIUM HYDROX 2400MG/30ML ORAL SUSPENSION 30 ML CUP PO PRN (18:26)
[2017-09-12] MEDS ORDERED: ACETAMINOPHEN 325 MG TABLET (FP) PO PRN (18:26)
[2017-09-12] MEDS ORDERED: IBUPROFEN 400 MG TABLET (FP) PO PRN (18:26)
[2017-09-12] MEDS ORDERED: MAG HYDROX/AL HYDROX/SIMETH 30 ML UNIT-DOSE CUP PO PRN (18:26)
[2017-09-12] MEDS ORDERED: P-EPHED 60MG/TRIPROLIDI 2.5MG TABLET PO PRN (18:26)
[2017-09-12] MEDS ORDERED: MAGNESIUM CITRATE 300 ML BOTTLE PO PRN (18:26)
[2017-09-12] MEDS: chlordiazePOXIDE HCL 25 MG CAPSULE PO PRN (19:29)
[2017-09-12 22:00] LABS: URINE APPEARANCE CLEAR; URINE BILIRUBIN NEGATIVE (NEGATIVE); URINE BLOOD NEGATIVE (NEGATIVE); URINE COLOR AMBER; URINE GLUCOSE (UA) 1+ (NEGATIVE); URINE KETONE NEGATIVE (NEGATIVE); URINE NITRITE NEGATIVE (NEGATIVE); URINE PROTEIN NEGATIVE (NEGATIVE); URINE UROBILINOGEN 4.0 E.U/dl mg/dL (0.2-1.0)
[2017-09-12] MEDS: THIAMINE HCL 100 MG TABLET (FP) PO SCH (22:24)
[2017-09-12] MEDS: chlordiazePOXIDE HCL 25 MG CAPSULE PO SCH (22:24)
[2017-09-13] MEDS: chlordiazePOXIDE HCL 25 MG CAPSULE PO SCH ×4 (06:59→23:04)
[2017-09-13] MEDS: metFORMIN HCL 500 MG TABLET (FP) PO SCH ×2 (06:59→17:17)
[2017-09-13] MEDS: INSULIN SLIDING SCALE (NOVOLOG) 1 VIAL SQ SCH ×2 (07:09→17:18)
[2017-09-13 09:12] LABS: MCH 24.9 pg (25.7-33.7); MCHC 31.2 g/dl (32.0-35.9); MEAN CELL VOLUME 79.8 fl (80-96); PLATELET COUNT 107 K/MM3 (134-434); RDW 15.9 % (11.9-15.9); WHITE BLOOD COUNT 7.7 K/mm3 (4.0-10.0)
[2017-09-13 09:15] LABS: MEAN PLT VOLUME 8.7 fl (7.5-11.1)
[2017-09-13 10:15] LABS: URINE LEUK ESTERASE Negative (NEGATIVE)
[2017-09-13 10:17] LABS: HIV 1 & 2 AB NEGATIVE; HIV 1 AGp24 NEGATIVE
[2017-09-13] MEDS: NICOTINE 21 MG/24 HOURS TOPICAL PATCH TD SCH (10:21)
[2017-09-13] MEDS: PRENATAL VITAMINS W/ FOLIC ACID TABLET (FP) PO SCH (10:22)
[2017-09-13 10:56] LABS: ALBUMIN 3.4 g/dl (3.4-5.0); ALK PHOS 87 U/L (45-117); ANION GAP 8 (8-16); BILIRUBIN,TOTAL 2.7 mg/dL (0.2-1.0); CALCIUM 8.9 mg/dL (8.5-10.1); CO2 27 mmol/L (21-32); CREATININE 0.7 mg/dL (0.7-1.3); GLUCOSE,RANDOM 153 mg/dL (74-106); SGOT/AST 38 U/L (15-37); SGPT/ALT 27 U/L (12-78); TOT PROT 7.3 g/dl (6.4-8.2)
--- NOTE | 2017-09-13 12:42 | PN ---
[facility] CIWA - CIWA Score Nausea/Vomitin-Mild Nausea/No Vomiting Muscle Tremors: 4-Moderate,w/Arms Extend Anxiety: 1-Mildly Anxious Agitation: 4-Moderately Restless Paroxysmal Sweats: 1-Minimal Palms Moist Orientation: 0-Oriented Tacttile Disturbances: 1-Very Mild Itch/Numbness Auditory Disturbances: 1-Very Mild Visual Disturbances: 0-None Headache: 2-Mild CIWA-Ar Total Score: 15 S Progress Note (SOAP) Subjective: anxious, shaky, poor sleep Objective: 09/13/17 12:41 Laboratory Tests 09/12/17 09/12/17 09/13/17 17:30 21:00 06:39 WBC RBC Hgb Hct MCV MCH MCHC RDW Plt Count MPV Sodium Potassium Chloride Carbon Dioxide Anion Gap BUN Creatinine Creat Clearance w eGFR POC Glucometer 155 119 Random Glucose Calcium Total Bilirubin AST ALT Alkaline Phosphatase Total Protein Albumin Urine Color [place] Urine Appearance Clear Urine pH 8.0 Ur Specific [place] 1.015 Urine Protein Negative Urine Glucose (UA) 1+ H Urine Ketones Negative Urine Blood Negative Urine Nitrite Negative Urine Bilirubin Negative Urine Urobilinogen 4.0 e.u/dl Ur Leukocyte Esterase Negative HIV 1&2 Antibody Screen HIV P24 Antigen 09/13/17 09/13/17 09/13/17 07:50 07:50 07:50 WBC 7.7 D RBC 5.11 D Hgb 12.7 D Hct 40.8 D MCV 79.8 L MCH 24.9 L MCHC 31.2 L RDW 15.9 Plt Count 107 L D MPV 8.7 Sodium 141 Potassium 3.8 Chloride 106 Carbon Dioxide 27 Anion Gap 8 BUN 5 L D Creatinine 0.7 D Creat Clearance w eGFR > 60 POC Glucometer Random Glucose 153 H Calcium 8.9 Total Bilirubin 2.7 H D AST 38 H D ALT 27 D Alkaline Phosphatase 87 D Total Protein 7.3 Albumin 3.4 D Urine Color Urine Appearance Urine pH Ur Specific [place] Urine Protein Urine Glucose (UA) Urine Ketones Urine Blood Urine Nitrite Urine Bilirubin Urine Urobilinogen Ur Leukocyte Esterase HIV 1&2 Antibody Screen Negative HIV P24 Antigen Negative Vital Signs - 24 hr 09/12/17 09/12/17 09/12/17 14:11 19:29 23:51 Temperature 98.6 F 98.2 F 97.0 F L Pulse Rate 82 96 H 99 H Respiratory 18 20 20 Rate Blood Pressure 120/70 134/79 122/74 09/13/17 09/13/17 09/13/17 00:30 04:33 06:44 Temperature 98.0 F Pulse Rate 80 Respiratory 18 18 16 Rate Blood Pressure 107/62 09/13/17 11:21 Temperature 98.1 F Pulse Rate 86 Respiratory 18 Rate Blood Pressure 104/54 Assessment: 09/13/17 12:41 withdrawal Plan: cont detox protocol
--- NOTE | 2017-09-13 13:19 | EKG ---
Test Reason : Blood Pressure : / mmHG Vent. Rate : 091 BPM Atrial Rate : 091 BPM P-R Int : 120 ms QRS Dur : 098 ms QT Int : 396 ms P-R-T Axes : 042 066 043 degrees QTc Int : 487 ms NORMAL SINUS RHYTHM PROLONGED QT ABNORMAL ECG WHEN COMPARED WITH ECG OF 05-JUL-2017 11:00, NO SIGNIFICANT CHANGE WAS FOUND CLINICAL CORRELATION IS RECOMMENDED Confirmed by JUAN JOSE NIETO, MITUL ([id number]) on 09/13/2017 1:18:59 PM Referred By: Confirmed By:MITUL INGRAM MD
--- NOTE | 2017-09-13 14:26 | CONSULT ---
[facility] Psychiatric Consult - Data Date of interview: 09/13/17 Admission source: [facility] Identifying data: Another admission to [facility] for this 52 y/o male seeking detox treatment on for alcohol dependence.Patient is , a father of two,domiciled,unemployed and supported on Public Assistance. Substance Abuse History: Confirmed by patient in this session. Smoking history : Current every day smoker. Have you smoked in the past 12 months: Yes. Aproximately how many cigarettes per day: 20. Cigars Per Day: 0. Hx Chewing Tobacco Use: No. Initiated information on smoking cessation: Yes. 'Breaking Loose' booklet given: 09/12/17. - Substance & Tx. History. Hx Alcohol Use: Yes. Hx Substance Use: No. Substance Use Type: Alcohol. Hx Substance Use Treatment: Yes (07/05-07/09/17 [facility]). - Substances Abused. Alcohol. Route: Oral. Frequency: Daily. Amount used: liquor- 1 pint, beer- 1 six pack 40oz. Age of first use: 12. Date of Last Use: 09/11/17 Medical History: Diabetes mellitus and past history of treatment for syphillis ( 2016). Psychiatric History: History of two psychiatric hospitalizations (both at [facility]).Diagnosed with MDD and Anxiety Disorder.Maintained on zoloft,seroquel and trazodone (doses not recalled).Mr Johnson reports sporadic adherence to OPD care.He indicates that he is currently affiliated with [facility].Last took psychotropic medications on 09/12/17 as per self-report.Patient denies history of suicide attempts. Physical/Sexual Abuse/Trauma History: Patient denies. Additional Comment: Drug Screen is negative. Mental Status Exam - Mental Status Exam Alert and Oriented to: Time, Place, Person Cognitive Function: Good Patient Appearance: Well Groomed Mood: Hopeful, Euthymic Affect: Appropriate, Normal Range Patient Behavior: Fatigued, Appropriate, Cooperative Speech Pattern: Clear Voice Loudness: Normal Thought Process: Intact, Goal Oriented Thought Disorder: Not Present Hallucinations: Denies Suicidal Ideation: Denies Homicidal Ideation: Denies Insight/Judgement: Poor Sleep: Poorly, Difficulty falling asleep Appetite: Good Muscle strength/Tone: Normal Gait/Station: Normal Psychiatric Findings - Problem List ([place] 1, 2,3) (1) Alcohol dependence with uncomplicated withdrawal Current Visit: Yes Status: Acute (2) Nicotine dependence Current Visit: Yes Status: Acute Qualifiers: Nicotine product type: cigarettes Substance use status: in withdrawal Qualified Code(s): F17.213 - Nicotine dependence, cigarettes, with withdrawal; F17.213 - Nicotine dependence, cigarettes, with withdrawal (3) Substance induced mood disorder Current Visit: Yes Status: Acute (4) Depressive disorder Current Visit: No Status: Chronic Comment: History.Non compliant with psychiatric aftercare. (5) Diabetes mellitus type II, non insulin dependent Current Visit: Yes Status: Chronic (6) Hx of syphilis Current Visit: No Status: Resolved Comment: treated (7) Insomnia Current Visit: Yes Status: Acute - Initial Treatment Plan Initial Treatment Plan: Psychoeducation.Detoxification.Medications (patient's request) : seroquel 100 mg po hs + sertraline 100 mg po daily + trazodone 100 mg po hs.Side effects/benefits are discussed with the patient.Made aware of potential for priapism,suicidal ideation,oversedation,abnormal involuntary movements,metabolic syndrome and cardiovascular adverse events.Mr Johnson insists on resuming these medications.Observation.
[2017-09-13] MEDS: traZODone HCL 100 MG TABLET (FP) PO SCH (22:21)
[2017-09-13] MEDS: QUEtiapine FUMARATE 100 MG TABLET (FP) PO SCH (22:21)
[2017-09-13] MEDS: THIAMINE HCL 100 MG TABLET (FP) PO SCH (22:21)
[2017-09-14] MEDS: chlordiazePOXIDE HCL 25 MG CAPSULE PO SCH ×3 (05:35→17:55)
[2017-09-14] MEDS: INSULIN SLIDING SCALE (NOVOLOG) 1 VIAL SQ SCH ×2 (07:52→17:56)
[2017-09-14] MEDS: metFORMIN HCL 500 MG TABLET (FP) PO SCH ×2 (07:53→17:54)
[2017-09-14] MEDS: PRENATAL VITAMINS W/ FOLIC ACID TABLET (FP) PO SCH (10:07)
[2017-09-14] MEDS: NICOTINE 21 MG/24 HOURS TOPICAL PATCH TD SCH (10:07)
[2017-09-14] MEDS: SERTRALINE HCL 50 MG TABLET (FP) PO SCH (10:07)
--- NOTE | 2017-09-14 14:37 | PN ---
[facility] CIWA - CIWA Score Nausea/Vomitin-No Nausea/No Vomiting Muscle Tremors: 3 Anxiety: 3 Agitation: 4-Moderately Restless Paroxysmal Sweats: 3 Orientation: 0-Oriented Tacttile Disturbances: 2-Mild Itch/Numbness/Burn Auditory Disturbances: 0-None Visual Disturbances: 0-None Headache: 0-None Present CIWA-Ar Total Score: 15 S Progress Note (SOAP) Subjective: Anxiety,tremors,sweating,interrupted sleep,restless Objective: 09/14/17 14:37 Vital Signs - 8 hr 09/14/17 10:00 Temperature 98.2 F Pulse Rate 117 H Respiratory 18 Rate Blood Pressure 100/68 Laboratory Tests 09/12/17 09/12/17 09/13/17 17:30 21:00 06:39 WBC RBC Hgb Hct MCV MCH MCHC RDW Plt Count MPV Sodium Potassium Chloride Carbon Dioxide Anion Gap BUN Creatinine Creat Clearance w eGFR POC Glucometer 155 119 Random Glucose Calcium Total Bilirubin AST ALT Alkaline Phosphatase Total Protein Albumin Urine Color [place] Urine Appearance Clear Urine pH 8.0 Ur Specific [place] 1.015 Urine Protein Negative Urine Glucose (UA) 1+ H Urine Ketones Negative Urine Blood Negative Urine Nitrite Negative Urine Bilirubin Negative Urine Urobilinogen 4.0 e.u/dl Ur Leukocyte Esterase Negative RPR Titer T.pallidum Ab ([facility]) HIV 1&2 Antibody Screen HIV P24 Antigen 09/13/17 09/13/17 09/13/17 07:50 07:50 07:50 WBC 7.7 D RBC 5.11 D Hgb 12.7 D Hct 40.8 D MCV 79.8 L MCH 24.9 L MCHC 31.2 L RDW 15.9 Plt Count 107 L D MPV 8.7 Sodium 141 Potassium 3.8 Chloride 106 Carbon Dioxide 27 Anion Gap 8 BUN 5 L D Creatinine 0.7 D Creat Clearance w eGFR > 60 POC Glucometer Random Glucose 153 H Calcium 8.9 Total Bilirubin 2.7 H D AST 38 H D ALT 27 D Alkaline Phosphatase 87 D Total Protein 7.3 Albumin 3.4 D Urine Color Urine Appearance Urine pH Ur Specific [place] Urine Protein Urine Glucose (UA) Urine Ketones Urine Blood Urine Nitrite Urine Bilirubin Urine Urobilinogen Ur Leukocyte Esterase RPR Titer T.pallidum Ab ([facility]) HIV 1&2 Antibody Screen Negative HIV P24 Antigen Negative 09/13/17 09/13/17 09/14/17 07:50 20:37 05:34 WBC RBC Hgb Hct MCV MCH MCHC RDW Plt Count MPV Sodium Potassium Chloride Carbon Dioxide Anion Gap BUN Creatinine Creat Clearance w eGFR POC Glucometer 175 130 Random Glucose Calcium Total Bilirubin AST ALT Alkaline Phosphatase Total Protein Albumin Urine Color Urine Appearance Urine pH Ur Specific [place] Urine Protein Urine Glucose (UA) Urine Ketones Urine Blood Urine Nitrite Urine Bilirubin Urine Urobilinogen Ur Leukocyte Esterase RPR Titer Reactive 1:1 H T.pallidum Ab ([facility]) Previously reactive HIV 1&2 Antibody Screen HIV P24 Antigen labs noted Assessment: 09/14/17 14:38 Withdrawal sx. Plan: Continue detox
[2017-09-14] MEDS: chlordiazePOXIDE HCL 25 MG CAPSULE PO PRN (15:05)
[2017-09-14] MEDS ORDERED: INSULIN (NOVOLOG) ASPART 100 UNITS/ML 10ML VIAL ONE (16:56)
[2017-09-14] MEDS: chlordiazePOXIDE 5 MG CAPSULE PO SCH (22:09)
[2017-09-14] MEDS: traZODone HCL 100 MG TABLET (FP) PO SCH (22:09)
[2017-09-14] MEDS: QUEtiapine FUMARATE 100 MG TABLET (FP) PO SCH (22:09)
[2017-09-14] MEDS: THIAMINE HCL 100 MG TABLET (FP) PO SCH (22:09)
[2017-09-15] MEDS: INSULIN SLIDING SCALE (NOVOLOG) 1 VIAL SQ SCH ×2 (08:17→17:27)
[2017-09-15] MEDS: chlordiazePOXIDE 5 MG CAPSULE PO SCH ×3 (08:17→18:21)
[2017-09-15] MEDS: metFORMIN HCL 500 MG TABLET (FP) PO SCH ×2 (08:18→18:21)
--- NOTE | 2017-09-15 09:33 | PN ---
[facility] Progress Note (SOAP) Subjective: sleepy sweats tired Objective: 09/15/17 09:32 Vital Signs Temperature 96.9 F L 09/15/17 06:25 Pulse Rate 92 H 09/15/17 06:25 Respiratory Rate 20 09/15/17 06:25 Blood Pressure 105/62 09/15/17 06:25 O2 Sat by Pulse Oximetry (%) aaox3 ambulating no acute distress Assessment: 09/15/17 09:32 withdrawal sx Plan: continue detox increase fluids psych ordered for re-evaluation to medication adjustment. d/c in am
[2017-09-15] MEDS: NICOTINE 21 MG/24 HOURS TOPICAL PATCH TD SCH (10:54)
[2017-09-15] MEDS: SERTRALINE HCL 50 MG TABLET (FP) PO SCH (10:54)
[2017-09-15] MEDS: PRENATAL VITAMINS W/ FOLIC ACID TABLET (FP) PO SCH (10:54)
[2017-09-15] MEDS: traZODone HCL 100 MG TABLET (FP) PO SCH (22:12)
[2017-09-15] MEDS: chlordiazePOXIDE HCL 10 MG CAPSULE PO SCH (22:12)
[2017-09-15] MEDS: THIAMINE HCL 100 MG TABLET (FP) PO SCH (22:12)
[2017-09-15] MEDS: QUEtiapine FUMARATE 100 MG TABLET (FP) PO SCH (22:12)
[2017-09-16] MEDS: INSULIN SLIDING SCALE (NOVOLOG) 1 VIAL SQ SCH (07:33)
[2017-09-16] MEDS: metFORMIN HCL 500 MG TABLET (FP) PO SCH (07:59)
[2017-09-16] MEDS: chlordiazePOXIDE HCL 10 MG CAPSULE PO SCH ×2 (07:59→10:11)
--- NOTE | 2017-09-16 08:46 | DS ---
[facility] Detox Discharge Summary Admission Date: 09/12/17 Discharge Date: 09/16/17 - History Present History: Alcohol Dependence - Physical Exam Results Vital Signs: Vital Signs Temperature 96.4 F L 09/16/17 06:31 Pulse Rate 93 H 09/16/17 06:31 Respiratory Rate 20 09/16/17 06:31 Blood Pressure 92/50 09/16/17 06:31 O2 Sat by Pulse Oximetry (%) - Treatment Hospital Course: Detox Protocol Followed, Detoxed Safely, Responded well, Discharged Condition Good, Rehab Referral Accepted - Medication Discharge Medications: Ambulatory Orders Metformin HCl [Glucophage -] 500 mg PO BID 07/05/17 Quetiapine Fumarate [Seroquel] 150 mg PO BID 07/05/17 Sertraline HCl [Zoloft -] 50 mg PO DAILY #30 tablet 07/07/17 Trazodone HCl 100 mg PO HS #30 tablet 07/07/17 - Diagnosis (1) Alcohol dependence with uncomplicated withdrawal Current Visit: Yes Status: Chronic (2) Insomnia Current Visit: Yes Status: Acute (3) Nicotine dependence Current Visit: Yes Status: Acute Qualifiers: Nicotine product type: cigarettes Substance use status: uncomplicated Qualified Code(s): F17.210 - Nicotine dependence, cigarettes, uncomplicated; F17.210 - Nicotine dependence, cigarettes, uncomplicated (4) Substance induced mood disorder Current Visit: Yes Status: Acute (5) Diabetes mellitus type II, non insulin dependent Current Visit: Yes Status: Chronic (6) Blackout Current Visit: No Status: Acute (7) Elevated bilirubin Current Visit: No Status: Acute (8) Knee injury Current Visit: No Status: Acute Qualifiers: Encounter type: subsequent encounter Laterality: left Qualified Code(s): S89.92XD - Unspecified injury of left lower leg, subsequent encounter; S89.92XD - Unspecified injury of left lower leg, subsequent encounter (9) Recent weight loss Current Visit: No Status: Acute (10) Depressive disorder Current Visit: No Status: Chronic (11) Diabetes mellitus treated with oral medication Current Visit: No Status: Chronic (12) Major depressive disorder, single episode Current Visit: No Status: Chronic (13) Pedal edema Current Visit: No Status: Chronic (14) Use of cane as ambulatory aid Current Visit: No Status: Chronic - AMA Did Patient Leave Against Medical Advice: No
[2017-09-16] MEDS: SERTRALINE HCL 50 MG TABLET (FP) PO SCH (10:09)
[2017-09-16] MEDS: PRENATAL VITAMINS W/ FOLIC ACID TABLET (FP) PO SCH (10:10)
[2017-09-16] MEDS: NICOTINE 21 MG/24 HOURS TOPICAL PATCH TD SCH (10:11)
[2017-09-16 10:24] VITALS: BP 102/63; PULSE 100; TEMP 97.5
== END 2017-09-16 11:40 | disposition home or self-care (01) | DRG 775 ==
LOC: YASAS 13:20 → Y6N 17:58
PROVIDERS: ADMIT Internal Medicine; ATTEND Internal Medicine
PROC: HZ2ZZZZ Detoxification Services for Substance Abuse Treatment (ICD-10-PCS; principal; 2017-09-12)
DX: F10.230 Alcohol dependence with withdrawal, uncomplicated (principal); F17.210 Nicotine dependence, cigarettes, uncomplicated; F19.24 Other psychoactive substance dependence with psychoactive substance-induced mood disorder; F33.9 Major depressive disorder, recurrent, unspecified; E11.9 Type 2 diabetes mellitus without complications; E80.7 Disorder of bilirubin metabolism, unspecified; G47.00 Insomnia, unspecified; R60.0 Localized edema; R26.2 Difficulty in walking, not elsewhere classified; Z99.89 Dependence on other enabling machines and devices; Z79.84 Long term (current) use of oral hypoglycemic drugs; Z87.438 Personal history of other diseases of male genital organs; Z91.14 Patient's other noncompliance with medication regimen; Z91.5 Personal history of self-harm; Z86.69 Personal history of other diseases of the nervous system and sense organs
CPT/HCPCS: 36415; 80053; 81003; 85027; 86593; 86780; 87389; 93005; 93010